=== PATIENT | male | born 1955 | race Caucasian/White ===

== ENCOUNTER 2016-08-14 23:30 | Emergency (ER) | payer OTHER ==
[~2016-08-14] VITALS: Ht 167.6 cm; Wt 74.1 kg
[~2016-08-14 23:30] MED LIST: ACET-171 PO; ALBU2.5V4 INHALATION; ALBU8.5H2 INHALATION; CALC1TAB23 PO; CHOL200047 PO; CLOB15CR3 TOP; DOXY50CA2 PO; FERR324T2 PO; FEXO-123 PO; FURO40TA4 PO; GUAI120013 PO; MOME13HF IH; MONT10TA23 PO; OMEP40CA3 PO; POTA-62 PO; PRD5T PO; PRE10 PO; PRE20 PO; PRED-508 PO; TIOT18CA3 IH
[2016-08-14] MEDS ORDERED: Albuterol-Ipratropium 3 mL Inhalation Solution ONE (23:34)
[2016-08-14 23:37] VITALS: BP 132/86; PULSE 99; RESP 20; O2SAT 93
--- NOTE | 2016-08-14 23:38 | ED.REPORT ---
HPI-Dyspnea / Wheezing Date of Service Aug 14, 2016 ED Provider: Jere Christine MD This is a 61 year old male with a history of COPD and asthma presenting to the emergency department complaining of dyspnea that began yesterday. Pt visited his PCP and was started on z-pack, had one dose today. Now reports worsening dyspnea that is associated with wheezing and non-productive cough. Denies nausea , vomiting, abdominal pain, constipation, or diarrhea. Received a flu shot one week ago. Nursing Notes Stated Complaint: DIFFICULTY BREATHING/FLU SYMPTOMS Chief Complaint: Respiratory Distress Nursing Notes Reviewed: Yes Allergies: Coded Allergies: No Known Allergies (Verified Allergy, Unknown, 04/14/16) Scheduled Calcium Carbonate/Vitamin D3 (Os-Travon 500+D3 Caplet) 500 Mg-600 Tablet 2 EACH PO DAILY Cholecalciferol (Vitamin D3) (Vitamin D3) 2,000 Unit Capsule 4,000 UNIT PO DAILY Doxycycline Hyclate (Doxycycline Hyclate) 50 Mg Capsule 50 MG PO BID Ferrous Sulfate (Ferrous Sulfate) 324 Mg Tablet.dr 324 MG PO TID Furosemide (Furosemide) 40 Mg Tablet 40 MG PO BIDBL Guaifenesin (Mucinex) 1,200 Mg Tbmp.12hr 1,200 MG PO q12 Mometasone/Formoterol (Dulera 200 Mcg/5 Mcg Inhaler) 13 Gm Hfa.aer.ad 2 PUFFS IH BID Montelukast (Montelukast) 10 Mg Tablet 10 MG PO HS Omeprazole (Prilosec) 40 Mg Capsule.dr 40 MG PO DAILY Potassium Chloride ER (Potassium Chloride ER) 20 Meq Tablet.er 10 MEQ PO BID TAKE WITH FOOD Prednisone (Deltasone) 20 Mg Tablet 60 MG PO DAILY Prednisone (PredniSONE) 20 Mg Tablet 40 MG PO DAILY Prednisone (PredniSONE) 20 Mg Tablet 20 MG PO DAILY Prednisone (PredniSONE) 10 Mg Tablet 10 MG PO DAILY Prednisone (PredniSONE) 5 Mg Tab 5 MG PO DAILY Prednisone (PredniSONE) 20 Mg Tablet 40 MG PO DAILY Prednisone (PredniSONE) 20 Mg Tablet 60 MG PO DAILY Prednisone (PredniSONE) 20 Mg Tablet 20 MG PO TID Tiotropium Somis (Spiriva) 18 Mcg Cap.w.dev 18 MCG IH DAILY Scheduled PRN Acetaminophen (Acetaminophen) 500 Mg Tablet 500 MG PO DAILY PRN PRN For Pain Albuterol HFA (Proair HFA) 8.5 Gm Hfa.aer.ad 2 PUFFS INHALATION Q4H PRN PRN For Shortness of Breath Albuterol Neb Soln (Albuterol Neb Soln) 2.5 Mg/3 Ml Vial.neb 2.5 MG INHALATION Q4H PRN PRN For Shortness of Breath Clobetasol Propionate/Emoll (Clobetasol Emollient 0.05% Crm) 15 Gm Cream..g. 1 APPL TOP BID PRN PRN rash Fexofenadine (Aller-Ease) 60 Mg Tablet 60 MG PO DAILY PRN PRN allergies General Time Seen by MD: 23:35 Chief Complaint Shortness of breath Hx Obtained From: Patient Arrived By: Walk-in Sudden in Onset?: Yes Onset Occurred: 1 - 4 hours ago Symptom Duration: Since onset Severity: Current: No pain currently Pertinent Negative: Pt denies other symptoms Recent Healthcare: No recent doctor visit, No recent hospitalization Similar Sx Previous: No Past Medical History Past Medical History COPD asthma arthritis Past Surgical History Reports: Tonsillectomy Smoking History Former Smoker Social History Alcohol Use: "Social" Other Social History: Ambulatory Status Independent Review of Systems Constitutional: Denies: Chills, Fever Ears / Nose / Throat: Denies: Sore throat Respiratory: Reports: Non-productive cough, Shortness of breath Cardiovascular: Denies: Chest pain, Syncope Musculoskeletal: Denies: Back pain, Neck pain Complete sys rev & neg: except as marked. Physical Exam Initial Vital Signs Vital Signs (First) Date Time Temp Pulse Resp B/P Pulse Ox O2 Delivery O2 Flow Rate FiO2 08/14/16 23:37 37.0 99 20 132/86 93 Room Air - Initial VS: Reviewed, Vital signs normal Head / Eyes: Atraumatic, Normocephalic, PERRL ENT: Mucous membranes moist, Conjunctiva normal, No scleral icterus Abdomen / GI: Soft, Non-tender, No guarding, No rebound, No distention Extremities: Vascular intact, Neuro intact, No swelling, No tenderness Skin: Warm, Dry, No cyanosis Neurologic: Alert, Oriented, Nonfocal Psychiatric: Mood/affect normal, Behavior normal, Normal thought content General/Constitutional: Awake, Alert Neck: Atraumatic, Supple, No meningismus, Full range of motion, No swelling, Non-tender, No masses Resp Distress / Stridor: Positive: Resp distress severe Diminished Breath Sounds: Positive: Decreased bilateral Wheezing / Retractions: Positive: Wheeze insp/exp diffuse Cardiovascular: Heart rate NL, Regular rhythm, Heart sounds NL, Peripheral circulation NL Interpretation & Diagnostics Lab Results Interpretation Result Diagram: 08/14/16 2340 08/14/16 2340 Test 08/14/16 23:40 White Blood Count 7.9th/mm3 (3.8-10.1) Red Blood Count 3.91mil/mm3 (4.40-5.80) Hemoglobin 12.8g/dL (13.8-17.2) Hematocrit 38.3% (41.0-50.0) Mean Corpuscular Volume 98.0fL (81-100) Mean Corpuscular Hemoglobin 32.7pg (27.0-35.0) Mean Corpuscular Hemoglobin Concent 33.4% (32.0-37.0) Red Cell Distribution Width 12.7% (12.3-15.4) Platelet Count 401bil/L (150-400) Neutrophils (%) (Auto) 51.4% (40-74) Lymphocytes (%) (Auto) 23.7% (14-46) Monocytes (%) (Auto) 11.1% (4-12) Eosinophils (%) (Auto) 12.4% (0-5) Basophils (%) (Auto) 1.3% (0-3) Sodium Level 140mEq/L (134-144) Potassium Level 3.9mEq/L (3.5-5.2) Chloride Level 102mEq/L (97-108) Carbon Dioxide Level 22mmol/L (18-29) Blood Urea Nitrogen 11mg/dL (8-27) Creatinine 0.75mg/dL (0.76-1.27) Estimat Glomerular Filtration Rate 113mL/min (>59) Glucose Level 105mg/dL (60-99) Calcium Level 9.3mg/dL (8.5-10.1) Total Bilirubin 0.3mg/dL (0.0-1.2) Aspartate Amino Transf (AST/SGOT) 24U/L (0-50) Alanine Aminotransferase (ALT/SGPT) 13U/L (0-44) Alkaline Phosphatase 47U/L (25-160) Troponin T 0.010ug/L (0.0-0.011) Pro-B-Type Natriuretic Peptide 40.22pg/mL (0-210) Total Protein 7.3g/dL (6.4-8.4) Albumin 4.1g/dL (3.4-5.0) Hold Jung Top Tube Received (Received) Lab values outside NL range: no clinical significance. Lab Results Interpretation: Influenza negative ECG Interpretation ECG Interpretation: NSR at a rate of 97 Prolonged QT interval Time: 23:59 Interpreted by: ED physician X-Ray Chest Interpretation Interpretation / Wet Read by: Wet read ED physician NL X-Ray Chest Findings: No acute disease Re-Eval/Medical Decision Med Decision/Clinical Course 61-year-old male with an acute exacerbation of COPD/asthma. He responded nicely to multiple nebulizer treatments plus Solu-Medrol. He will be discharged home to continue his albuterol and azithromycin. Prednisone 20 mg by mouth 3 times a day, #15 prescription written. Re-Evaluation/Progress : Time of Eval: 02:35 Patient Status: Condition resolved Re-Evaluation/Progress Note: Pt feels well, discussed plan for d/c, pt understands and agrees with plan, all questions addressed. Counseled Regarding: Diagnosis, Lab results, Need for follow-up, When/why to return to ED Discharge & Departure Impression: Primary Impression: COPD with acute exacerbation Disposition: Home Discharge Condition All VS Reviewed: Yes Condition: Stable Patient Instructions: Chronic Obstructive Pulmonary Disease (ED) Additional Instructions: Finish the azithromycin. Continue albuterol inhaler. Prednisone 20 mg by mouth 3 times a day, #15 prescription written. Follow-up with your regular doctor if you have persistent symptoms. Referrals: Dae Meredith DO (PCP) Scribe Attestation Portions of this note were transcribed by Yehuda Donald. I, Dr. Christine personally performed the history, physical exam and medical decision-making; I reviewed and confirmed the accuracy of the information in the transcribed note. Signed by: vera Hollis. 08/14/2016, 02:00. Jere Christine MD Aug 14, 2016 23:38 YEHUDA DONALD Aug 14, 2016 23:43
[2016-08-14] MEDS ORDERED: Albuterol 2.5 mg/3 mL Inhalation Solution NEB ONE (23:40)
[2016-08-14] MEDS ORDERED: Albuterol-Ipratropium 3 mL Inhalation Solution NEB ONE (23:40)
[2016-08-14] MEDS ORDERED: MethylprednisoLONE Sodium Succinate 62.5 mg/mL 2 mL Inj IVPUSH ONE (23:40)
[2016-08-14 23:55] VITALS: PULSE 101; RESP 34; O2SAT 93
[2016-08-14 23:58] LABS: BASOPHILS % (AUTO) 1.3 % (0-3); EOSINOPHILS % (AUTO) 12.4 % (0-5); MONOCYTES % (AUTO) 11.1 % (4-12); Mean Corpuscular Hemoglobin 32.7 pg (27.0-35.0); NEUTROPHILS % (AUTO) 51.4 % (40-74); Platelet Count 401 bil/L (150-400)
[2016-08-15 00:04] VITALS: PULSE 97; RESP 19; O2SAT 95
[2016-08-15 00:31] VITALS: BP 121/78; PULSE 103; RESP 25; O2SAT 98
[2016-08-15 00:37] LABS: TROPONIN T 0.01 ug/L (0.0-0.011)
[2016-08-15] MEDS ORDERED: PRE20 PO (02:36)
[2016-08-15 03:34] VITALS: BP 115/66; PULSE 92; RESP 23; O2SAT 90
--- NOTE | 2016-08-15 08:52 | DRSVH ---
PROCEDURE: X-RAY CHEST ONE VIEW, PORTABLE ([id number]) INDICATIONS: COPD exacerbation. TECHNIQUE: One view of the chest was acquired. COMPARISON: [facility], CR, CHEST 1VW (PORTABLE), 04/25/2014, 7:07. [facility] susan, CT, CT ANGIO CHEST PE, 11/21/2015, 14:24. [facility], CR, XR CHEST 1VW (PORTABLE), , 7:16. FINDINGS: Surgical changes and devices: None. Lungs and pleura: No pleural effusions or pneumothorax. Diffuse interstitial prominence appears unch anged. Mediastinum: Mediastinal contours appear normal. Heart size is normal. Bones and chest wall: No suspicious bony lesions. Overlying soft tissues appear unremarkable. IMPRESSION: No acute cardiopulmonary disease. Dictated by: Gurpreet Brantley M.D. on 08/15/2016 at 8:48 Approved by: Gurpreet Brantley M.D. on 08/15/2016 at 8:51
== END 2016-08-15 03:35 | disposition home or self-care (01) ==
LOC: SED 23:30
DX: J44.1 Chronic obstructive pulmonary disease with (acute) exacerbation (principal); J45.909 Unspecified asthma, uncomplicated; Z87.891 Personal history of nicotine dependence
CPT/HCPCS: 36415; 71010; 80053; 83880; 84484; 85025; 87804; 93005; 94640; 94664; 96374; 99285; J2930; J7613; J7620

== ENCOUNTER 2017-02-02 06:03 | Emergency (ER) | payer OTHER ==
[~2017-02-02] VITALS: Ht 170.2 cm; Wt 72.7 kg
[2017-02-02] MEDS ORDERED: Albuterol 2.5 mg/3 mL Inhalation Solution NEB ONE ×2 (06:11)
[2017-02-02 06:12] VITALS: BP 120/71; PULSE 97; RESP 22; O2SAT 92
[2017-02-02] MEDS ORDERED: Albuterol-Ipratropium 3 mL Inhalation Solution ONE (06:12)
--- NOTE | 2017-02-02 06:12 | ED.REPORT ---
HPI-Dyspnea / Wheezing Date of Service Feb 02, 2017 ED Provider: Agapito Vogt MD Pt is a 61 year old male with a hx of asthma and COPD presenting to the ED complaining of SOB onset a couple weeks ago, worsened today. Associated symptoms include a productive cough (green mucus) and chest pain. Denies fever or any other symptoms at this time. Pt was last on oral steroids in July 2016. He takes Spiriva daily and uses a DuoNeb a couple times per day in the last few weeks. Nursing Notes Stated Complaint: TROUBLE BREATHING Chief Complaint: Respiratory Distress Nursing Notes Reviewed: Yes Allergies: Coded Allergies: No Known Allergies (Verified Allergy, Unknown, 04/14/16) Scheduled Azithromycin (Zithromax (Z-Anibal)) 250 Mg Tablet 250 MG PO DIRECTED Take two tablets by mouth on day 1, then take one tablet daily on days 2 through 5. Calcium Carbonate/Vitamin D3 (Os-Travon 500+D3 Caplet) 500 Mg-600 Tablet 2 EACH PO DAILY Cholecalciferol (Vitamin D3) (Vitamin D3) 2,000 Unit Capsule 4,000 UNIT PO DAILY Doxycycline Hyclate (Doxycycline Hyclate) 50 Mg Capsule 50 MG PO BID Ferrous Sulfate (Ferrous Sulfate) 324 Mg Tablet.dr 324 MG PO TID Furosemide (Furosemide) 40 Mg Tablet 40 MG PO BIDBL Guaifenesin (Mucinex) 1,200 Mg Tbmp.12hr 1,200 MG PO q12 Mometasone/Formoterol (Dulera 200 Mcg/5 Mcg Inhaler) 13 Gm Hfa.aer.ad 2 PUFFS IH BID Montelukast (Montelukast) 10 Mg Tablet 10 MG PO HS Omeprazole (Prilosec) 40 Mg Capsule.dr 40 MG PO DAILY Potassium Chloride ER (Potassium Chloride ER) 20 Meq Tablet.er 10 MEQ PO BID TAKE WITH FOOD Prednisone (Deltasone) 20 Mg Tablet 60 MG PO DAILY Prednisone (PredniSONE) 20 Mg Tablet 40 MG PO DAILY Prednisone (PredniSONE) 20 Mg Tablet 20 MG PO DAILY Prednisone (PredniSONE) 10 Mg Tablet 10 MG PO DAILY Prednisone (PredniSONE) 5 Mg Tab 5 MG PO DAILY Prednisone (PredniSONE) 20 Mg Tablet 40 MG PO DAILY Prednisone (PredniSONE) 20 Mg Tablet 60 MG PO DAILY Prednisone (PredniSONE) 20 Mg Tablet 20 MG PO TID Prednisone (PredniSONE) 20 Mg Tablet 60 MG PO DAILY Tiotropium [place] (Spiriva) 18 Mcg Cap.w.dev 18 MCG IH DAILY Scheduled PRN Acetaminophen (Acetaminophen) 500 Mg Tablet 500 MG PO DAILY PRN PRN For Pain Albuterol HFA (Proair HFA) 8.5 Gm Hfa.aer.ad 2 PUFFS INHALATION Q4H PRN PRN For Shortness of Breath Albuterol Neb Soln (Albuterol Neb Soln) 2.5 Mg/3 Ml Vial.neb 2.5 MG INHALATION Q4H PRN PRN For Shortness of Breath Clobetasol Propionate/Emoll (Clobetasol Emollient 0.05% Crm) 15 Gm Cream..g. 1 APPL TOP BID PRN PRN rash Fexofenadine (Aller-Ease) 60 Mg Tablet 60 MG PO DAILY PRN PRN allergies General Time Seen by MD: 06:07 Chief Complaint Shortness of breath Hx Obtained From: Patient Arrived By: Walk-in Sudden in Onset?: No Onset Occurred: More than a week ago... (2 weeks) Symptom Duration: Since onset Quality: Painful Severity: Current: Mild Severity: Maximum: Mild Recent Healthcare: No recent doctor visit, No recent hospitalization Similar Sx Previous: Yes Past Medical History Past Medical History COPD asthma arthritis Large intestine ulcer Osteoporosis Past Surgical History Reports: Tonsillectomy Smoking History Former Smoker Social History Alcohol Use: "Social" Other Social History: Ambulatory Status Independent Review of Systems Constitutional: Denies: Fever, Weakness - generalized Respiratory: Reports: Prod cough, green, Shortness of breath, Wheezing Cardiovascular: Reports: Chest pain, Denies: Palpitations Skin: Denies Swelling Complete sys rev & neg: except as marked. Physical Exam Initial Vital Signs Vital Signs (First) Date Time Temp Pulse Resp B/P Pulse Ox O2 Delivery O2 Flow Rate FiO2 02/02/17 06:12 36.8 97 22 120/71 92 Room Air 02/02/17 06:17 7 Initial VS: Reviewed Head / Eyes: Atraumatic, Normocephalic, PERRL ENT: Mucous membranes moist, Conjunctiva normal, No scleral icterus Abdomen / GI: Soft, Non-tender, No guarding, No rebound, No distention Extremities: Vascular intact, Neuro intact, No swelling, No tenderness Skin: Warm, Dry, No cyanosis Neurologic: Alert, Oriented, Nonfocal Psychiatric: Mood/affect normal, Behavior normal, Normal thought content General/Constitutional: Awake, Alert Neck: Atraumatic, Supple Resp Distress / Stridor: Positive: Resp distress severe Diffuse wheezing bilaterally. Poor air movement. Subcostal substernal retractions. Speaking in shortened sentences. Cardiovascular: Heart rate NL, Regular rhythm, Heart sounds NL Lower Extremity / Pelvis / MS: No deformity, Neurologic intact, Vascular intact , No edema Interpretation & Diagnostics ABG: pH: 7.413 pCO2: 36 pO2: 104.0 cHCO3: 22.6 Lab Results Interpretation Result Diagram: 02/02/17 0640 02/02/17 0640 Test 02/02/17 06:40 White Blood Count 8.7th/mm3 (3.8-10.1) Red Blood Count 4.23mil/mm3 (4.40-5.80) Hemoglobin 13.4g/dL (13.8-17.2) Hematocrit 39.8% (41.0-50.0) Mean Corpuscular Volume 94.1fL (81-100) Mean Corpuscular Hemoglobin 31.7pg (27.0-35.0) Mean Corpuscular Hemoglobin Concent 33.7% (32.0-37.0) Red Cell Distribution Width 13.4% (12.3-15.4) Platelet Count 314bil/L (150-400) Neutrophils (%) (Auto) 60.8% (40-74) Lymphocytes (%) (Auto) 16.8% (14-46) Monocytes (%) (Auto) 7.6% (4-12) Eosinophils (%) (Auto) 13.7% (0-5) Basophils (%) (Auto) 1.0% (0-3) D-Dimer 0.92mg/L FEU (<0.50) Sodium Level 143mEq/L (134-144) Potassium Level 3.9mEq/L (3.5-5.2) Chloride Level 104mEq/L (97-108) Carbon Dioxide Level 22mmol/L (18-29) Blood Urea Nitrogen 12mg/dL (8-27) Creatinine 0.86mg/dL (0.76-1.27) Estimat Glomerular Filtration Rate 96mL/min (>59) Glucose Level 94mg/dL (60-99) Calcium Level 8.8mg/dL (8.5-10.1) Total Bilirubin 0.2mg/dL (0.0-1.2) Aspartate Amino Transf (AST/SGOT) 26U/L (0-50) Alanine Aminotransferase (ALT/SGPT) 16U/L (0-44) Alkaline Phosphatase 58U/L (25-160) Troponin T 0.010ug/L (0.0-0.011) Pro-B-Type Natriuretic Peptide 22.90pg/mL (0-210) Total Protein 7.2g/dL (6.4-8.4) Albumin 3.8g/dL (3.4-5.0) ECG Interpretation ECG Interpretation: Sinus tachycardia with a rate of 114. Poor quality due to motion artifact. Time: 06:59 Interpreted by: ED physician X-Ray Chest Interpretation Chest Xray Interpretation: IMPRESSION: Acute disease is not seen an upright portable chest. Dictated by: Leif Gipson M.D. on 02/02/2017 at 8:18 View: Portable, 1 view Interpretation / Wet Read by: Interpret - Radiologist CT Chest Interpretation IMPRESSION: No acute changes are seen in the lungs. No pulmonary emboli. Aorta and great vessels show no aneurysm or dissection. Cause of dyspnea is not identified. Dictated by: Leif Gipson M.D. on 02/02/2017 at 9:51 Study type: CT pulm angiogram Interpretation / Wet Read by: Interpret - Radiologist Re-Eval/Medical Decision Med Decision/Clinical Course 61-year-old male history of COPD presenting in severe respiratory distress. Patient was tripoding and speaking in shortened sentences on arrival. Poor air movement. He was given 2 DuoNeb, steroids, magnesium and felt much better. His d-dimer was positive. CT showed no PE. Labs were stable. Recommended admission patient requested discharge home given he felt much better. Patient was discharged home with steroids and Z-Anibal for a COPD exacerbation, asthma exacerbation. He will return immediately should he have any new or worsening difficulty breathing. He is discharged in the care of his ex-. Re-Evaluation/Progress #1: Time of Eval: 07:22 Patient Status: Condition improved Re-Evaluation/Progress Note: Pt reports that he is feeling a bit better, but is still wheezing. Re-Evaluation/Progress #2: Time of Eval: 07:44 Patient Status: Condition improved Re-Evaluation/Progress Note: Complains of rib pain with inspiration. Denies hx of intubation. Re-Evaluation/Progress #3: Time of Eval: 09:50 Patient Status: Condition improved Re-Evaluation/Progress Note: Pt feeling much better. Discussed plan for discharge. Counseled Regarding: Diagnosis, Lab results, Need for follow-up, When/why to return to ED Discharge & Departure Impression: Primary Impression: COPD with acute exacerbation Additional Impression: Asthma exacerbation Disposition: Home Discharge Condition All VS Reviewed: Yes Condition: Improved Patient Instructions: Asthma (ED) Additional Instructions: Your CT and xray today were both normal. They did not show any dangerous cause for your shortness of breath, such as a blood clot. Take the steroids and antibiotics as prescribed. Return to the ER if you develop any new or worsening symptoms such as shortness of breath or chest pain. Follow up with your primary care doctor on Saturday. Referrals: Dae Meredith DO (PCP) Crit Care Except Billable Proc Time Spent: 30-74 minutes Services Performed: Patient management by me, Time spent at bedside, Reviewing test results, Reviewing imaging, Discussing patient care, Documentation in record, Time with fam/surrogate Scribe Attestation Portions of this note were transcribed by Jennifer Rowland. I, Dr. Vogt personally performed the history, physical exam and medical decision-making; I reviewed and confirmed the accuracy of the information in the transcribed note. Signed by: Kevyn Ba, 02/02/2017 at 1013. copies to: Dae Meredith Ben M MD Feb 02, 2017 06:12 JENNIFER ROWLAND Feb 02, 2017 06:19
[2017-02-02 06:17] VITALS: PULSE 99; RESP 28; O2SAT 95
[2017-02-02] MEDS ORDERED: MethylprednisoLONE Sodium Succinate 62.5 mg/mL 2 mL Inj IVPUSH ONE (06:20)
[2017-02-02] MEDS ORDERED: Albuterol-Ipratropium 3 mL Inhalation Solution NEB ONE (06:20)
[2017-02-02 06:50] LABS: EOSINOPHILS % (AUTO) 13.7 % (0-5); MONOCYTES % (AUTO) 7.6 % (4-12); Mean Corpuscular Hemoglobin 31.7 pg (27.0-35.0); Mean Corpuscular Volume 94.1 fL (81-100); NEUTROPHILS % (AUTO) 60.8 % (40-74); Platelet Count 314 bil/L (150-400)
[2017-02-02 07:14] LABS: TROPONIN T 0.01 ug/L (0.0-0.011)
[2017-02-02] MEDS ORDERED: Magnesium Sulf 2 Gm/50mL Water 2 GM in IV Premix 1 EACH IV ONE (07:30)
[2017-02-02 07:38] VITALS: BP 115/70; PULSE 118; RESP 28; O2SAT 96
--- NOTE | 2017-02-02 07:55 | ABG ---
DateTimeAnalyzed 07:44:04 -_ pH ____7.413 - 7.350 7.450 pCO2 ___35.5__ -mmHg 35.0 45.0 pO2 104 -mmHg 69.0 116 HCO3- ___22.6__ -mmol/L 22.0 26.0 ABE ___-1.7__ -mmol/L tHb ___13.5__ -g/dL O2Hb ___97.0__ -% COHb ____0.0__ -% 1.5 MetHb ____0.0__ -% sO2 ___96.9__ -% FIO2 ___50.0__ -% Drawn By RC - Date/Time Notified____ 07:55:00 -_ Spontaneous_RR 32 -b/min Liter_Flow ____7.00_ -L/min Oxygen Device 1 AEROSOL MASK - Notified By RC - Notified Whom LUCUS-REID - K+ ____3.7__ -mmol/L tO2 ___18.6__ -Vol% Cordell test _Positive -
--- NOTE | 2017-02-02 08:21 | DRSVH ---
PROCEDURE: X-RAY CHEST ONE VIEW, PORTABLE ([id number]) INDICATIONS: dyspnea TECHNIQUE: One view of the chest was acquired. COMPARISON: [facility], CR, XR CHEST 1VW (PORTABLE), 08/14/2016, 23:33. 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 Lungs and pleura: No pleural effusions or pneumothorax. Lungs are clear. Mediastinum: Mediastinal contours appear normal. Heart size is normal. Bones and chest wall: No suspicious bony lesions. Overlying soft tissues appear unremarkable. IMPRESSION: Acute disease is not seen an upright portable chest. Dictated by: Leif Gipson M.D. on 02/02/2017 at 8:18 Approved by: Leif Gipson M.D. on 02/02/2017 at 8:18
[2017-02-02 09:02] VITALS: PULSE 120; RESP 32; O2SAT 95
--- NOTE | 2017-02-02 09:58 | DRSVH ---
PROCEDURE: CT ANGIO CHEST PULMONARY EMBOLISM ([id number]) INDICATIONS: dyspnea elevated dimer TECHNIQUE: After the administration of intravenous contrast, 2 mm thick sections acquired from the pulmonary api tanja to the posterior costophrenic angles. 3-dimensional maximum intensity projection (MIP) coronal a nd sagittal reformats were then acquired through the thorax. For radiation dose reduction, the follo wing was used: automated exposure control, adjustment of mA and/or kV according to patient size. COMPARISON: [facility], CR, XR CHEST 1VW (PORTABLE), 02/02/2017, 6:32. FINDINGS: Image quality: Excellent. Pulmonary arteries: Pulmonary arteries are normal in size, and demonstrate no intraluminal filling d efects to suggest central pulmonary embolism. Lungs and pleura: Lungs are clear. No pleural effusions or pneumothorax. Central and peripheral ai rways are patent. Mediastinum: Heart size is normal, without pericardial effusion. No mediastinal or hilar adenopathy . Thoracic aorta is normal in caliber and enhancement. Esophagus is normal in caliber, without hiat al hernia. Bones and chest wall: No suspicious bony lesions. Ribs and thoracic spine appear intact throughout. Thyroid gland is within normal limits. No axillary or supraclavicular adenopathy. Abdomen: Visualized upper abdominal solid organs appear normal in the early arterial phase of enhanc ement. IMPRESSION: No acute changes are seen in the lungs. No pulmonary emboli. Aorta and great vessels show no aneurysm or dissection. Cause of dyspnea is not identified. Dictated by: Leif Gipson M.D. on 02/02/2017 at 9:51 Approved by: Leif Gipson M.D. on 02/02/2017 at 9:57
[2017-02-02] MEDS ORDERED: AZIT250T4 PO (10:02)
[2017-02-02] MEDS ORDERED: PRE20 PO (10:02)
[2017-02-02 10:32] VITALS: BP 108/66; PULSE 115; RESP 23; O2SAT 92
== END 2017-02-02 10:25 | disposition home or self-care (01) ==
LOC: SED 06:03
DX: J44.1 Chronic obstructive pulmonary disease with (acute) exacerbation (principal); J45.901 Unspecified asthma with (acute) exacerbation; J44.9 Chronic obstructive pulmonary disease, unspecified; J45.909 Unspecified asthma, uncomplicated; Z87.891 Personal history of nicotine dependence
CPT/HCPCS: 36415; 36620; 71010; 71275; 80053; 82375; 82803; 83880; 84484; 85025; 85378; 93005; 94645; 96374; 96375; 99291; J2930; J7613; J7620; Q9967

== ENCOUNTER 2017-03-10 07:42 | Inpatient (IN) | payer OTHER ==
[2017-03-10] VITALS (15 sets, daily range): BP systolic 102–128; BP diastolic 51–83; PULSE 82–121; RESP 14–36; O2SAT 88–97
[~2017-03-10] VITALS: Ht 168.9 cm; Wt 70.7 kg
[~2017-03-10 07:42] MED LIST changes: +AZIT250T4 PO
[2017-03-10] MEDS ORDERED: Albuterol 2.5 mg/3 mL Inhalation Solution NEB ONE ×5 (07:46→08:45)
[2017-03-10] MEDS ORDERED: Albuterol-Ipratropium 3 mL Inhalation Solution ONE (07:49)
--- NOTE | 2017-03-10 07:51 | ED.REPORT ---
HPI-Dyspnea / Wheezing Date of Service Mar 10, 2017 ED Provider: Manjit Gonzalez MD The pt is a 61 y/o male w/ a hx of COPD, and asthma presenting to the ED complaining of SOB onset two days ago. He also is experiencing a productive cough w/ "colored" sputum. The pt used his nebulizer throughout the night before he came here to the ED. He does not use at home oxygen. Denies fevers, chest pain, peripheral edema, or hemoptysis. The pt reports having very similar episodes of similar severity in the past. The pt was last seen here in the ED 1 month ago for COPD w/ acute exacerbation and last hospitalized a year and three months ago for respiratory failure. Nursing Notes Stated Complaint: SOB Chief Complaint: SOB [facility]: [facility]) Allergies: Coded Allergies: No Known Allergies (Verified Allergy, Unknown, 04/14/16) Scheduled Cholecalciferol (Vitamin D3) (Vitamin D3) 2,000 Unit Capsule 4,000 UNIT PO DAILY Ferrous Sulfate (Ferrous Sulfate) 324 Mg Tablet.dr 324 MG PO TID Furosemide (Furosemide) 40 Mg Tablet 40 MG PO BIDBL Guaifenesin (Guaifenesin) 400 Mg Tablet 400 MG PO BID Ipratropium/Albuterol Sulfate (Iprat-Albut 0.5-3(2.5) mg/3 mL Inhalant Soln) 3 Ml Ampul.neb 3 ML IH Q6 Mometasone/Formoterol (Dulera 200 Mcg/5 Mcg Inhaler) 13 Gm Hfa.aer.ad 2 PUFFS IH BID Montelukast (Montelukast) 10 Mg Tablet 10 MG PO HS Omeprazole (Prilosec) 40 Mg Capsule.dr 40 MG PO DAILY Potassium Chloride ER (Potassium Chloride ER) 20 Meq Tablet.er 20 MEQ PO DAILY TAKE WITH FOOD Ranitidine (Ranitidine) 150 Mg Capsule 150 MG PO DAILY Tiotropium [place] (Spiriva) 18 Mcg Cap.w.dev 18 MCG IH DAILY Scheduled PRN Acetaminophen (Acetaminophen) 500 Mg Tablet 500 MG PO DAILY PRN PRN For Pain Albuterol HFA (Proair HFA) 8.5 Gm Hfa.aer.ad 2 PUFFS INHALATION Q4H PRN PRN For Shortness of Breath Albuterol Neb Soln (Albuterol Neb Soln) 2.5 Mg/3 Ml Vial.neb 2.5 MG INHALATION Q4H PRN PRN For Shortness of Breath Fexofenadine (Aller-Ease) 60 Mg Tablet 60 MG PO DAILY PRN PRN allergies diphenhydrAMINE HCl (Benadryl) 25 Mg Capsule 22 MG PO Q4 PRN PRN For Itching Miscellaneous Medications Calcium Carbonate (Calcium) 600 Mg Tablet 600 MG PO Magnesium Oxide (Magnesium) 500 Mg Capsule 500 MG PO General Time Seen by MD: 07:49 Chief Complaint Shortness of breath Hx Obtained From: Patient, Spouse Arrived By: Walk-in Sudden in Onset?: Yes Onset Occurred: 2 days ago Symptom Duration: Since onset Recent Healthcare: No recent hospitalization, Recent doctor visit Similar Sx Previous: Yes Past Medical History Past Medical History Notes: Admitted for COPD/Respiratory failure 11/2015 Last ED visit for COPD 01/2017 (last time on ABX + steroids) Past Medical History COPD asthma arthritis Large intestine ulcer Osteoporosis Past Surgical History Reports: Tonsillectomy Smoking History Former Smoker Social History Alcohol Use: "Social" Other Social History: Ambulatory Status Independent Review of Systems Constitutional: Denies: Fever Respiratory: Reports: Prod cough, green, Prod cough, yellow, Shortness of breath, Denies: Prod cough, bloody Cardiovascular: Denies: Chest pain, Edema Complete sys rev & neg: except as marked. Physical Exam Initial Vital Signs Vital Signs (First) Date Time Temp Pulse Resp B/P Pulse Ox O2 Delivery O2 Flow Rate FiO2 03/10/17 07:48 36.2 104 31 111/83 88 Room Air Initial VS: Reviewed, Unavailable (no vitals on chart, ordered) Head / Eyes: Atraumatic, Normocephalic, PERRL ENT: Mucous membranes moist, Conjunctiva normal, No scleral icterus Extremities: Vascular intact, Neuro intact, No swelling, No tenderness Skin: Warm, Dry, No cyanosis Neurologic: Alert, Oriented, Nonfocal Psychiatric: Mood/affect normal, Behavior normal, Normal thought content General/Constitutional: Awake, Alert Neck: Atraumatic, Supple, Full range of motion Respiratory / Chest: Breath sounds = bilat Resp Distress / Stridor: Positive: Resp distress severe Audible bronchospasm in all lung faith Cardiovascular: Regular rhythm, Heart sounds NL Heart Rate / Rhythm: Positive: Tachycardia Interpretation & Diagnostics Lab Results Interpretation Result Diagram: 03/10/17 0750 03/10/17 0750 Test 03/10/17 07:50 03/10/17 08:24 White Blood Count 10.6th/mm3 (3.8-10.1) Red Blood Count 4.48mil/mm3 (4.40-5.80) Hemoglobin 14.5g/dL (13.8-17.2) Hematocrit 42.2% (41.0-50.0) Mean Corpuscular Volume 94.2fL (81-100) Mean Corpuscular Hemoglobin 32.4pg (27.0-35.0) Mean Corpuscular Hemoglobin Concent 34.4% (32.0-37.0) Red Cell Distribution Width 13.2% (12.3-15.4) Platelet Count 370bil/L (150-400) Neutrophils (%) (Auto) 67.4% (40-74) Lymphocytes (%) (Auto) 14.0% (14-46) Monocytes (%) (Auto) 8.6% (4-12) Eosinophils (%) (Auto) 8.6% (0-5) Basophils (%) (Auto) 1.1% (0-3) Sodium Level 138mEq/L (134-144) Potassium Level 4.2mEq/L (3.5-5.2) Chloride Level 99mEq/L (97-108) Carbon Dioxide Level 21mmol/L (18-29) Blood Urea Nitrogen 9mg/dL (8-27) Creatinine 0.78mg/dL (0.76-1.27) Estimat Glomerular Filtration Rate 108mL/min (>59) Glucose Level 98mg/dL (60-99) Calcium Level 9.3mg/dL (8.5-10.1) Total Bilirubin 0.5mg/dL (0.0-1.2) Aspartate Amino Transf (AST/SGOT) 26U/L (0-50) Alanine Aminotransferase (ALT/SGPT) 14U/L (0-44) Alkaline Phosphatase 77U/L (25-160) Troponin T 0.010ug/L (0.0-0.011) Pro-B-Type Natriuretic Peptide 53.56pg/mL (0-210) Total Protein 7.4g/dL (6.4-8.4) Albumin 3.9g/dL (3.4-5.0) Lab Results Interpretation: CBC normal CMP normal Troponin normal BMP normal Venous blood gas: PH is 7.365, PCO2 41, PO2 of 74.9, bicarbonate 22.6 ECG Interpretation ECG Interpretation: Sinus tachycardia at 112, no acute ischemic changes, no interval change compared with 02/02/2070 Time: 08:46 Interpreted by: ED physician X-Ray Chest Interpretation Chest Xray Interpretation: IMPRESSION: No acute cardiopulmonary findings. Dictated by: Dahlia Dobbs M.D. on 03/10/2017 at 8:37 Approved by: Dahlia Dobbs M.D. on 03/10/2017 at 8:37 View: Portable, 1 view Interpretation / Wet Read by: Interpret - Radiologist Re-Eval/Medical Decision Med Decision/Clinical Course This is a 17-year-old male history of severe COPD presents complaining of worsening shortness breath for the past 2 days it feels similar typical of COPD , and symptoms are much worse today. He has been doing is multiple home medications including home nebulizers, but his breathing got worse still, so I cannot prescribe. He reports a cough of productive sputum, but denies fever. Pain, he has no prior history of DVT or PE. His prior cardiac disease. Reports no medication changes. He has no visual complaints. On arrival the patient's in serious respiratory distress with profound audible bronchospasm sitting on the edge of the bed to maximize accessory muscle use. He has significant bronchospasm limited air movement. He has trace edema in the legs which is chronic and unchanged. No JVD. The patient reports this is typical of COPD, has a clinical presentation I suggested COPD-and so treatment was initiated. The patient received multiple repeated bronchodilators with albuterol and Atrovent. Received IV steroids, magnesium, and given his level distress offered BiPAP-however the patient reports that he was placed on BiPAP last time he had such severe distress he really found it quite claustrophobic and uncomfortable, so we tried the high flow, humidified O2 equavalent to CPAP -and this he reported made a significant difference and improvement in his symptoms-although he is still appears in severe respiratory distress. Blood gas demonstrates he is holding his own with PCO2 of 41 and a pH of 7.365. No pneumonia was appreciated on chest x-ray. Blood work was normal. I am not finding evidence to suggest a PE or need for repeat imaging she has had been previously. Given the patient's level distress admission continued therapy are indicated. The patient is being covered with antibiotics with azithromycin for COPD exacerbation, despite the absence of parmjit pneumonia, given his level of distress. Source of Hx: Old records Re-Evaluation/Progress : Time of Eval: 08:41 Re-Evaluation/Progress Note: Pt rechecked. Informed pt of need for admission. Pt understands and agrees with plan for admission. All questions addressed. Patient states he feels much improved but still clinically with significant work of breathing and bronchospasm Consultation : Referral / Consult Name: Michel Glasgow MD Consulted With: Hospitalist Call Returned at: 08:58 Perinatal Director: Will see patient, Agrees with eval, Agrees with plan, Accepts admit Counseled Regarding: Diagnosis, Lab results, Need for admission Discharge & Departure Impression: Primary Impression: COPD with acute exacerbation Additional Impression: Respiratory failure Chronicity: unspecified Respiratory failure complication: unspecified whether with hypoxia or hypercapnia Qualified Code: J96.90 - Respiratory failure, unspecified, unspecified whether with hypoxia or hypercapnia Disposition: ADMITTED TO HOSPITAL Discharge Condition All VS Reviewed: Yes Condition: Stable Referrals: Dae Meredith DO (PCP) Crit Care Except Billable Proc Time Spent: 30-74 minutes Services Performed: Patient management by me, Time spent at bedside, Reviewing test results, Reviewing imaging, Discussing patient care, Documentation in record, Time with fam/surrogate Scribe Attestation Portions of this note were transcribed by Derick Lai. I, Dr. Gonzalez personally performed the history, physical exam and medical decision-making; I reviewed and confirmed the accuracy of the information in the transcribed note. copies to: Dae Meredith Matthew F MD Mar 10, 2017 07:51 Derick Lai Mar 10, 2017 08:26
[2017-03-10] MEDS ORDERED: Ipratropium 0.02% 0.5 mg/2.5 mL Inhalation Solution NEB ONE (07:55)
[2017-03-10] MEDS ORDERED: MethylprednisoLONE Sodium Succinate 62.5 mg/mL 2 mL Inj IVPUSH ONE (07:55)
[2017-03-10] MEDS ORDERED: Magnesium Sulf 2 Gm/50mL Water 2 GM in IV Premix 1 EACH IV ONE (08:00)
[2017-03-10 08:01] LABS: BASOPHILS % (AUTO) 1.1 % (0-3); EOSINOPHILS % (AUTO) 8.6 % (0-5); MONOCYTES % (AUTO) 8.6 % (4-12); Mean Corpuscular Hemoglobin 32.4 pg (27.0-35.0); Mean Corpuscular Volume 94.2 fL (81-100); NEUTROPHILS % (AUTO) 67.4 % (40-74); Platelet Count 370 bil/L (150-400)
[2017-03-10] MEDS ORDERED: IPRA3AMP IH (08:14)
[2017-03-10] MEDS ORDERED: GUAI400T57 PO (08:21)
[2017-03-10] MEDS ORDERED: RANI150C4 PO (08:21)
[2017-03-10] MEDS ORDERED: MAGN500C4 PO (08:21)
[2017-03-10] MEDS ORDERED: DIPH25CA6 PO (08:21)
[2017-03-10] MEDS ORDERED: POTA-62 PO (08:21)
[2017-03-10] MEDS ORDERED: CALC600T12 PO (08:21)
[2017-03-10 08:24] LABS: TROPONIN T 0.01 ug/L (0.0-0.011)
--- NOTE | 2017-03-10 08:39 | DRSVH ---
PROCEDURE: X-RAY CHEST ONE VIEW, PORTABLE ([id number]) INDICATIONS: dyspnea TECHNIQUE: One view of the chest was acquired. COMPARISON: [facility], CR, XR CHEST 1VW (PORTABLE), 02/02/2017, 6:32. FINDINGS: Surgical changes and devices: None. Lungs and pleura: No pleural effusions or pneumothorax. Lungs are clear. Mediastinum: Mediastinal contours appear normal. Heart size is normal. Bones and chest wall: No suspicious bony lesions. Overlying soft tissues appear unremarkable. IMPRESSION: No acute cardiopulmonary findings. Dictated by: Dahlia Dobbs M.D. on 03/10/2017 at 8:37 Approved by: Dahlia Dobbs M.D. on 03/10/2017 at 8:37
--- NOTE | 2017-03-10 08:44 | ABG ---
DateTimeAnalyzed 08:36:00 -_ pH ____7.365 - 7.320 7.420 pCO2 ___40.5__ -mmHg 41.0 51.0 pO2 ___74.9__ -mmHg 24.0 40.0 HCO3- ___22.6__ -mmol/L ABE ___-2.1__ -mmol/L tHb ___14.5__ -g/dL 12.0 18.0 O2Hb ___91.4__ -% COHb ____0.8__ -% 0.0 1.5 MetHb ____1.2__ -% 0.4 1.5 sO2 ___93.3__ -% FIO2 ___45.0__ -% Drawn By jmw - Date/Time Notified____ 08:43:00 -_ Spontaneous_RR ___30.0__ -b/min Liter_Flow ____7.0__ -L/min Oxygen Device 1 AEROSOL MASK - Notified By JMW - Notified Whom DR ELSA - B 761 -mmHg tO2 ___18.6__ -Vol% Cordell test N/A -
[2017-03-10] MEDS ORDERED: Azithromycin Inj 500 MG in Dextrose 5% w/Vial Mate 250 ML IV ONE (08:50)
[2017-03-10] MEDS ORDERED: Ondansetron 2 mg/mL 2 mL Inj IVPUSH PRN ×2 (09:10→11:05)
[2017-03-10] MEDS ORDERED: Alum-Mag Hydrox-Simeth 30 mL Suspension PO PRN ×2 (09:10→11:05)
[2017-03-10] MEDS ORDERED: 0.9% Sodium Chloride 1,000 ML IV SCH (09:10)
[2017-03-10] MEDS ORDERED: 0.9% Sodium Chloride 250 ML ONE (09:24)
[2017-03-10] MEDS ORDERED: Senna-Docusate 8.6-50 mg Tablet PO PRN (11:05)
[2017-03-10] MEDS ORDERED: Polyethylene Glycol (PEG) 17 Gm Powder PO PRN (11:05)
[2017-03-10] MEDS ORDERED: Albuterol-Ipratropium 3 mL Inhalation Solution NEB PRN (11:10)
[2017-03-10] MEDS ORDERED: diphenhydrAMINE 25 mg Capsule PO PRN (11:10)
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
--- NOTE | 2017-03-10 15:10 | NUR ---
P: Respiratory Distress I: Received pt from ED after receiving report. Pt on High flow 30% 30 Liters but sats drop to 86% for quite some time. FiO2 increased to 50% and 50 Liters and sats 93%. Pt gets very SOB with any activity. IVF decreased to TKO as 40mg po Lasix given.Voiding qs via urinal. NSR/ST. Taking clear fluids without difficulty. BP stable. E: Stable S: Alert and oriented. Uses call light appropriately. Frequent rounding.
[2017-03-10] MEDS: MethylprednisoLONE Sodium Succinate 62.5 mg/mL 2 mL Inj IVPUSH SCH ×2 (16:17→23:51)
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
[2017-03-10] MEDS: Albuterol-Ipratropium 3 mL Inhalation Solution NEB SCH ×2 (17:18→20:36)
[2017-03-10] MEDS ORDERED: guaiFENesin 20 mg/mL 10 mL Syrup PO PRN (20:30)
[2017-03-10] MEDS: Fluticasone-Salmererol 250-50 Inhaler INHALATION SCH (20:50)
[2017-03-11] VITALS (12 sets, daily range): BP systolic 92–126; BP diastolic 62–73; PULSE 78–115; RESP 17–26; O2SAT 94–98
--- NOTE | 2017-03-11 02:43 | NUR ---
Resp/Activity Patient states he is feeling better today, up and standing at bedside without severe work of breathing and denies shortness of breath on 10L Oxymask, sats remain 95-96% when up standing at bedside and with activity, denies any pain, A&Ox4, no distress noted, pleasant and cooperative, lungs slightly wheezy but good air movement heard upon auscultation with stethoscope. will continue to monitor. Addendum: 03/11/17 at 0247 by PILI EVANS RN Amended: Links added.
[2017-03-11 03:56] LABS: BASOPHILS % (AUTO) 0.1 % (0-3); EOSINOPHILS % (AUTO) 0 % (0-5); MONOCYTES % (AUTO) 1.4 % (4-12); Mean Corpuscular Hemoglobin 32.3 pg (27.0-35.0); Mean Corpuscular Volume 94.5 fL (81-100); NEUTROPHILS % (AUTO) 89.4 % (40-74); Platelet Count 377 bil/L (150-400)
[2017-03-11 04:13] LABS: INR 0.92 ratio
[2017-03-11 04:33] LABS: Magnesium 2.3 mg/dL (1.6-2.6); Phosphorus 4.1 mg/dL (2.5-4.9)
[2017-03-11] MEDS: MethylprednisoLONE Sodium Succinate 62.5 mg/mL 2 mL Inj IVPUSH SCH (07:50)
[2017-03-11] MEDS: Pantoprazole 40 mg ER24 Tablet PO SCH (07:50)
[2017-03-11] MEDS: Fluticasone-Salmererol 250-50 Inhaler INHALATION SCH ×2 (07:50→21:06)
[2017-03-11] MEDS: Albuterol-Ipratropium 3 mL Inhalation Solution NEB SCH ×4 (08:20→20:23)
[2017-03-11] MEDS ORDERED: Non-Formulary Medication (Ranitidine 150 MG) PO SCH (08:30)
[2017-03-11] MEDS ORDERED: Azithromycin Inj 500 MG in Dextrose 5% w/Vial Mate 250 ML IV SCH (08:30)
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
[2017-03-11] MEDS ORDERED: diphenhydrAMINE 25 mg Capsule PO PRN (11:22)
--- NOTE | 2017-03-11 11:29 | NUR ---
Took over patient care from Karmen Hobson [id number]
--- NOTE | 2017-03-11 17:27 | NUR ---
Social Work Note: Initial Assessment Data& Assessment: EMR Reviewed. Rik Lazaro is a 61 year old male admitted on 03/10/2017 for COPD exacerbation and respiratory failure. DIE TECHNICIAN met with pt and pt family at bedside to discuss discharge planning and assess for any unmet needs, DIE TECHNICIAN phone number provided on pt white board. Pt has [facility] insurance coverage and sees Dr. Meredith for primary care. Pt has LT insurance as well. Pt is not a . Pt lives in [place] in a two level home with his significant other. Pt is independent with all ADL's and drives at baseline. Pt does not normally require any DME or oxygen. Pt currently requires between 5-10L of oxygen at this time. Pt does not have HH or SNF hx. Pt declined DPOA/AD paperwork. Pt S/O to transport him home when medically ready. MD does not identify any concerns with pt capacity for self care. Pt ambulating in the room independently. Pt denies any needs. No other discharge needs or MD orders identified at this time. DIE TECHNICIAN to continue to follow if any needs arise. Plan: Anticipated discharge home via POV when medically ready. Pt denies any needs. No other discharge needs or MD orders identified at this time. DIE TECHNICIAN to continue to follow if any needs arise. COLLEEN Renee Addendum: 03/11/17 at 1731 by OJ SOLOMON Amended: Links added.
[2017-03-12] VITALS (10 sets, daily range): BP systolic 96–108; BP diastolic 60–73; PULSE 70–88; RESP 16–24; O2SAT 90–97
[2017-03-12 03:44] LABS: Mean Corpuscular Hemoglobin 31.8 pg (27.0-35.0)
--- NOTE | 2017-03-12 05:38 | NUR ---
Nurse Note NOC shift Pt remains alert and oriented x4, denies chest pain, HR 70's NSR on tele. He remained on 4L O2 via Oxy mask with SPO2 >94%. this morning O2 turned down to 2L, Spo2 96%. pt denies SOB at rest. All his vital signs stable through the shift. Pt voided via urinal, declined to eat any solid food but was drinking water. Pt reports having poor appetite, beginning of shift c/o mild nausea which resolved without any medication. he slept well through the night.
[2017-03-12] MEDS: Albuterol-Ipratropium 3 mL Inhalation Solution NEB SCH ×2 (08:08→11:47)
[2017-03-12] MEDS ORDERED: predniSONE 20 mg Tablet PO SCH (08:30)
[2017-03-12] MEDS: Pantoprazole 40 mg ER24 Tablet PO SCH (08:44)
[2017-03-12] MEDS: Fluticasone-Salmererol 250-50 Inhaler INHALATION SCH ×2 (08:45→10:04)
[2017-03-12] MEDS ORDERED: PRE20 PO (10:35)
[2017-03-12] MEDS ORDERED: AZIT500T5 PO (10:35)
--- NOTE | 2017-03-12 10:46 | PCM.DIMED ---
Roland Diamond DO 03/12/17 1046: Discharge Instructions Date of Service Mar 12, 2017 Dates of Hospitalization Mar 10, 2017 at 09:10 Discharge Diagnosis Discharge Diagnosis COPD exacerbation Osteoporosis GERD Medication Instructions Additional med instructions Please continue to take your home medications as previously prescribed with the following modifications: Please take Azithromycin 250mg Mon, Wed, Fri Prednisone 40mg daily for 5 days then stop Test Results Test Results Chest X ray showed no findings Diet Discharge Diet: No restrictions Activity Discharge Activity: No restrictions Call your provider Call your provider for: Fever or Chills, Shortness of breath, Bleeding, Chest pain, Vomitting, Excessive diarrhea, Weakness (unilateral) Patient Instructions Patient Instructions Continue to take medications are described above. We would like you to participate in Pulmonary Rehab as a patient as this will aid in some improvement of lung function and will decrease lung decompensation. Resume all home activities as tolerated. Follow-up plan Please follow up with your primary care doctor to establish a plan for staying out of the hospital. Your current lung meds have been reviewed by our independent living advisor and we found to be appropriate. You may follow up with pulmonology as needed. Follow-up Provider: Dae Meredith DO Follow-up with PCP in: 1 week Josh David DO 03/12/17 1443: Discharge Instructions Attending's Statement Read and agree Roland Diamond DO Mar 12, 2017 10:46 Josh David DO Mar 12, 2017 14:43
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
--- NOTE | 2017-03-12 15:11 | NUR ---
Discharge note Patient a/o x 4, denies pain, nausea or sob. Patient oob amb indep, steady gait. VSS, tele SR. O2 sat 93-94% RA at rest. Activity resp eval done per RTC. Lungs course bilat and decreased in the bases R>L. IV SL and tele removed intact. Patient given discharge instructions, med rec, info on COPD and new meds and prescriptions. All questions answered. Patient amb to car with all belongings, accompanied by staff and discharged home with family.
== END 2017-03-12 15:05 | disposition home or self-care (01) | DRG 189 ==
LOC: SED 07:42 → CCU 09:10 → PCC 03-11 08:48
PROVIDERS: ADMIT Internal Medicine; ATTEND Internal Medicine
PROC: 4A033R1 Measurement of Arterial Saturation, Peripheral, Percutaneous Approach (ICD-10-PCS; principal; 2017-03-10)
DX: J96.01 Acute respiratory failure with hypoxia (principal); J44.1 Chronic obstructive pulmonary disease with (acute) exacerbation; R73.9 Hyperglycemia, unspecified; M81.0 Age-related osteoporosis without current pathological fracture; K21.9 Gastro-esophageal reflux disease without esophagitis; Z87.891 Personal history of nicotine dependence